=== PATIENT | female | born 1990 | race Caucasian/White ===

== ENCOUNTER 2023-01-18 16:28 | Inpatient (IN) | payer MEDICARE, MEDICAID, SELFPAY ==
--- NOTE | ~2023-01-18 | CT_ITS ---
CT ANGIOGRAM NECK WITH CONTRAST CT ANGIOGRAM BRAIN WITH CONTRAST CLINICAL INFORMATION: CVA. COMPARISON: Head and cervical spine CT 01/18/2023. TECHNIQUE: Test bolus sequences followed by intravenous administration 70 mL of Omnipaque 350. Helical imaging was performed in the axial plane from the thoracic inlet to the skull vertex. Delayed postcontrast imaging of the head was also performed. The data was processed at the ep technologist workstation for generation of MIP sequences. Angled MIPs and volume rendered reformatted images were also generated at an offline 3D workstation under concurrent supervision. Stenoses are assessed in accordance with NASCET criteria unless otherwise indicated. This CT examination was performed using dose optimization techniques as appropriate, variously including the following: *Automated exposure control *Adjustment of mA and/or kV according to patient size (this includes techniques or standardized protocols for targeted exams where dose is matched to indication/reason for exam; i.e. extremities or head) *Use of iterative reconstruction technique FINDINGS: BRAIN: Possible subtle sanchez to white matter differentiation loss within the right frontal operculum that can be more definitively assessed with MRI to exclude a small acute infarct. There is chronic encephalomalacia and gliosis within the right parasylvian frontotemporal lobe. There are multiple punctate calcifications within the right temporal lobe. [There is no intracranial hemorrhage, hydrocephalus, extra-axial surface collection, midline shift, or other herniation pattern. The basilar cisterns are preserved. No acute osseous abnormality. The paranasal sinuses and the mastoid air cells are well aerated.] Shrunken and partially calcified left globe again noted. CERVICAL SOFT TISSUES AND LUNG APICES: The imaged upper lungs are clear. There are no significant soft tissue findings within the neck. NECK CTA: [There is a classic 3 vessel configuration of the aortic arch. Proximal arch vessels are non-stenotic. The vertebral arteries are codominant. No significant ostial stenosis is visualized on either side. Both vertebral arteries are widely patent throughout their extracranial cervical course. Both common and internal carotid arteries are normal in course and caliber.] BRAIN CTA: [Attenuated caliber of multiple distal anterior right MCA sylvian branches without any definite discrete occlusion. No aneurysm. Timing of the contrast bolus allows assessment of the major dural venous sinuses, which all opacify normally] CT/CT angio head neck IMPRESSION: - Possible subtle sanchez to white matter differentiation loss within the right frontal operculum that can be more definitively assessed with MRI to exclude a small acute infarct. There is chronic encephalomalacia and gliosis within the right parasylvian frontotemporal lobe and there are multiple punctate calcifications within the right temporal lobe. Shrunken and partially calcified left globe again noted. - Attenuated caliber of multiple distal anterior right MCA sylvian branches without any definite discrete occlusion. - No acute arterial occlusions and no significant arterial stenoses within the head or neck.
--- NOTE | ~2023-01-18 | CT_ITS ---
EXAMINATION: CT cervical spine wo IV con, CT head/brain wo IV con INDICATION INFORMATION: Reason for Exam cervical radiculopathy?, neck pain COMPARISON: None TECHNIQUE: Separate noncontrast CT examinations of the head and cervical spine were performed. Coronal and sagittal images were created for each examination at the technologist workstation. This CT examination was performed using dose optimization techniques as appropriate, variously including the following: *Automated exposure control *Adjustment of mA and/or kV according to patient size (this includes techniques or standardized protocols for targeted exams where dose is matched to indication/reason for exam; i.e. extremities or head) *Use of iterative reconstruction technique DLP: 1404.06 mGy-cm FINDINGS: Head: No acute osseous or soft tissue abnormality. There are uveoscleral calcifications of the left globe which appears slightly shrunken. There is a left lens replacement. The mastoid air cells and visualized portions of the paranasal sinuses are well aerated. There is no evidence of acute intracranial hemorrhage or territorial infarction. No abnormal mass effect or midline shift is seen. [place] to white matter differentiation is well preserved. No extra-axial fluid collections are identified. Small hypodensity in the posterior left cerebellum which measures CSF density likely reflects a widened cerebellar folia, less likely a chronic lacunar infarct. There is a cluster of cortical and subcortical punctate calcifications in the posterior right temporal and right occipital lobe. There is ventriculomegaly for age, presumably on the basis of central volume loss, with slight disproportional enlargement of the right lateral ventricle which may reflect preferential right cerebral volume loss. Widening of the right sylvian fissure which may reflect some disproportionate right temporal lobe volume loss. 8 mm pineal cyst. Cervical spine: There is no evidence of acute cervical spine fracture. Vertebral bodies remain normal in height. Cervical straightening. Disc space heights are maintained. No significant osseous spinal canal or neural foraminal narrowing. No pre- or paravertebral soft tissue abnormality is identified. The visualized cervical soft tissues are unremarkable. CT/CT cervical spine wo IV con IMPRESSION: 1. No acute intracranial abnormality including hemorrhage, mass effect, hydrocephalus, or acute territorial edematous infarction. 2. No cervical spine fracture or traumatic malalignment. No significant osseous spinal canal or neural foraminal narrowing. 3. Cluster of cortical and subcortical calcifications in the posterior right temporal and right occipital lobe which are nonspecific but may reflect sequela of remote infection. Additionally, the left globe appears shrunken and partially calcified which also may reflect sequela of prior infection or trauma. Correlate with clinical history 4. Ventriculomegaly for age, presumably on the basis of central volume loss, with possible disproportionate involvement of the right cerebral hemisphere as evidenced by asymmetric enlargement of the right lateral ventricle and widening of the right sylvian fissure. All the above intracranial findings are presumably chronic in nature and could be further assessed with a nonemergent outpatient contrast-enhanced MRI of the brain if this has not been performed in the past.
--- NOTE | ~2023-01-18 | MR_ITS ---
MRI OF THE BRAIN WITHOUT IV CONTRAST INDICATION: CVA. COMPARISON: CTA head and neck and head 01/19/[address] 01/18/2023. TECHNIQUE: Multiplanar multisequence MR imaging of the brain was obtained without IV contrast. FINDINGS: Previous CT finding was artifactual. There is no acute infarct within the right frontal operculum. There is no hydrocephalus, extra-axial surface collection, or herniation. Chronic encephalomalacia and gliosis within the right parasylvian frontotemporal lobe. The major flow voids at the skull base are preserved. There is no acute infarct on diffusion-weighted imaging. There is no intracranial hemorrhage on the gradient recalled echo acquisition. The midline structures are normal. The cerebellar tonsils are normally positioned. The cerebellum and brainstem are normal. The craniocervical junction is normal. Osseous marrow signal intensity is homogenous. Left globe is again noted to be shrunken. MR/MR head/brain wo con IMPRESSION: - Previous CT finding was artifactual. There is no acute infarct within the right frontal operculum. There are no acute infarcts intracranially. - Chronic encephalomalacia and gliosis within the right parasylvian frontotemporal lobe.
[2023-01-18 17:25] VITALS: BP 131/78; PULSE 93; RESP 18; TEMP 36.2; O2SAT 98; BMI 23.9
--- NOTE | 2023-01-18 17:30 | ED.GENADULT ---
HPI - General Adult General Chief complaint: Neuro Symptoms/Deficit Stated complaint: R arm numbness Time Seen by Provider: 01/18/23 20:08 Source: patient Mode of arrival: ambulatory Limitations: no limitations History of Present Illness HPI narrative: 33-year-old female presents with right-sided weakness. Patient has a history of preeclampsia. She is currently not . She presents with intermittent right-sided numbness and tingling since Sunday. Today it has been persistent. She describes her symptoms as severe to the point she is unable to pressure daughter is here. There is no clear relieving or exacerbating features. It is associated with numbness and tingling to the right face and right upper extremity. She denies any pain, trauma or injury. She denies any significant headache or vision changes. Her mother did have a stroke at age 35 but that is reportedly due to eclampsia. She does have a history of stroke, heart disease, COPD in grandparents. Prior to Sunday, patient denies any previous significant neuro complaints. Related Data Previous Rx's Medication Instructions Recorded topiramate 25 mg tablet (Topamax) 25 mg PO DAILY #30 tabs 01/19/23 Allergies Allergy/AdvReac Type Severity Reaction Status Date / Time amoxicillin [AMOXICILLIN] Allergy Unknown UNKNOWN, Verified 01/18/23 17:25 hives vancomycin [VANCOMYCIN] Allergy Unknown REDNESS,ITCHINESS, Verified 01/18/23 17:25 rash Review of Systems Review of Systems: CONSTITUTIONAL: Denies weight loss, fever and chills. HEENT: Denies changes in vision and hearing. RESPIRATORY: Denies SOB and cough. CV: Denies palpitations no CP. GI: Denies abdominal pain, nausea, vomiting and diarrhea. : Denies dysuria and urinary frequency. MSK: Denies myalgia and joint pain. SKIN: Denies rash and pruritus. NEUROLOGICAL: Denies headache and syncope. PSYCHIATRIC: Denies recent changes in mood. Denies anxiety and depression. All other ROS are negative unless in HPI PMFSH Past Medical History Medical History Cataract, left History of pre-eclampsia Surgical History History of cataract surgery Social History Social History Household Members: Spouse and Children Housing: Apartment Do you presently have visiting nurse or other home services: No Alcohol intake: never Patient Tobacco Use Status: Never used Tobacco service: No Physical Exam ED Vital Signs: Vital Signs - 24 hr 01/18/23 17:25 01/18/23 19:53 Temperature 97.2 F 97.9 F Pulse Rate 93 83 Respiratory Rate 18 16 Blood Pressure 131/78 140/86 H Pulse Oximetry 98 100 Oxygen Delivery Method Room Air Room Air BMI result Body Mass Index 23.9 GEN: Well developed, no acute distress, alert, oriented HEENT: Normocephalic, atraumatic, normal external ears, nose appears normal, no oropharyngeal edema or exudates Eyes: Normal to appearance Neck: Supple, no lymphadenopathy Respiratory: Talks in complete sentences, no respiratory distress, clear to auscultation bilaterally Cardiovascular: Regular rate and rhythm, no murmurs rubs or gallops Abdomen: Soft, nontender, nondistended, no guarding, no rebound Back: No CVA tenderness Extremities: No clubbing cyanosis or edema Neurologic: No focal neurologic deficits, cranial nerves 2-12 intact, patient does have a right facial asymmetry that does not appear to be stroke-like, strength in the right upper extremity is a 3/5, left upper extremity 5/5, unable to assess right lower extremity due to prosthetic above the knee, decreased sensation over the right upper extremity and right face over the maxillary mandibular area. Skin: No rash Course Course Course Narrative: RME: 33 yold female presents to the ED For right arm weakness/nubmness since sunday. not able to use arm. NO neck or right arm pain. no recent trauma. Physical exam positve for right side pronator drift and significan weakness of right arm in comparison to left. patient out the window for TPA or EMBOli. Family hisotry of strokes. UNcle had stroke at 36 and mother stroke at 40. patient denies any pmh of HTN or drug use. Labs, EKG, and head Scan ordered. Charge NUrse Christen informed to bring patient as soon as possible even though patient is outside the window for TPA or carotid embolecomty if there is a stroke. patient having symptoms for the past 4 days Reevaluation(s) Reevaluation #1: Patient's workup is complete. She does have a CT that demonstrates some abnormalities including calcifications, ventriculomegaly is not clearly explain but is likely chronic in nature. There does not appear to be in acute stroke however, CT scan findings may lag MRI findings. This is certainly concerning given the persistency of her symptoms that were not previously present on Sunday. I contacted the hospitalist who agreed to admit the patient for further workup possible neurologic evaluation and MRI. Time: 20:32 Medications Administered Discontinued Medications Generic Name Dose Route Start Last Admin Trade Name Jodee PRN Reason Stop Dose Admin Aspirin 81 mg 01/19/23 09:00 01/19/23 09:27 Aspirin Enteric Coated 81 Mg Tablet. PO 81 mg DAILY TRACY Administration Atorvastatin Calcium 80 mg 01/19/23 09:00 01/19/23 09:27 Atorvastatin Calcium 80 Mg Tablet PO 80 mg DAILY TRACY Administration Enoxaparin Sodium 40 mg 01/19/23 06:30 01/19/23 06:32 Enoxaparin Sodium 40 Mg/0.4 Ml Syringe SUBCUT 40 mg Q24H TRACY Administration Iohexol 70 ml 01/19/23 08:48 01/19/23 08:49 Iohexol 350 Mg/Ml 75 Ml Infus..Btl IV 01/19/23 08:49 70 ml ONCE ONE Administration Medical Decision Making Medical Decision Making [facility] Narrative: Patient presents with new onset right upper extremity weakness and right upper extremity right facial numbness and tingling. Exam did identify decreased sensation in those affected areas. She does have demonstrable weakness of the right upper extremity. Differential diagnosis could include TIA, CVA, multiple sclerosis. CT scan has been ordered will be reviewed. Routine laboratory analysis is also been ordered. Will add on an EKG for further evaluation for cardiac dysrhythmia patient will likely warrant hospitalization. Differential Diagnosis Differential Diagnoses: The differential diagnosis associated with the presentation includes (See above) Admission/Observation Consideration of admission/observation: Escalation of care including admission/observation considered Consult Healthcare Provider Management of the patient was discussed with: Hospitalist Lab Data [facility] Lab Attestation statement: I reviewed the patient's lab results. 01/19/23 06:58 01/19/23 06:58 Labs: Lab Results 01/18/23 Range/Units 17:40 WBC 9.5 (4.8-10.8) X10*3/uL RBC 4.41 (4.20-5.50) X10*6/uL Hgb 13.4 (12.0-16.0) g/dl Hct 39.5 (37.0-47.0) % MCV 89.6 (80.0-98.0) fL MCH 30.4 (27.0-33.0) pg MCHC 33.9 (31.0-35.0) g/dl RDW 12.2 (11.0-16.0) % Plt Count 308 (160-400) X10*3/uL MPV 10.0 (9.4-12.3) fL Immature Gran % (Auto) 0.2 (0.0-0.4) % Neut % (Auto) 65.0 (45-73) % Lymph % (Auto) 25.5 (20-40) % [place] % (Auto) 7.8 (2-11) % Eos % (Auto) 1.1 (0-4) % Baso % (Auto) 0.4 (0-2) % Lymph # (Auto) 2.4 (1.2-4.9) X10*3/uL [place] # (Auto) 0.7 (0.1-1.2) X10*3/uL Eos # (Auto) 0.1 (0.0-0.4) X10*3/uL Baso # (Auto) 0.0 (0.0-0.2) X10*3/uL Abs Immat Gran (auto) 0.02 (0.00-0.03) X10*3/uL Absolute Neuts (auto) 6.2 (2.0-8.3) x10*3/uL Absolute Nucleated RBC 0.000 (0.0-0.012) X10*3/uL Nucleated RBC % (auto) 0.0 (0.0-0.2) /100WBC PT 10.8 L (11.1-13.3) SEC INR 0.9 (0.9-1.1) APTT 27.0 (26.0-36.4) SEC Sodium 137 (135-145) mmol/L Potassium 3.8 (3.3-5.1) mmol/L Chloride 105 (96-108) mmol/L Carbon Dioxide 22 (22-29) mmol/L Anion Gap 14 (12-20) BUN 16 (9-16) mg/dL Creatinine 0.63 (0.5-1.4) mg/dL Estim Creat Clear Calc 95.0 Estimated GFR > 60 Random Glucose 149 H (60-115) mg/dL Calcium 9.1 (8.4-10.2) mg/dL Total Bilirubin 0.4 (0.0-1.0) mg/dL AST 15 (5-31) U/L ALT 17 (0-31) U/L Alkaline Phosphatase 43 (39-117) U/L Troponin I High Sens < 2.7 (<3.5-17.0) ng/L Total Protein 5.9 L (6.5-8.0) g/dL Albumin 3.8 (3.5-5.0) g/dL Independent Interpretation I performed an independent interpretation of an: EKG (Normal sinus rhythm heart rate 79, no acute ST elevations depressions, normal intervals, essentially normal EKG.) and CT Scan (Head: Abnormalities noted on my review, no evidence of intracranial hemorrhage.) Radiology Impression Discussion of test interpretation with radiology: I have reviewed the radiologist's reading. Radiologist Impression: Impression CT scan head and cervical spine: 1. No acute intracranial abnormality including hemorrhage, mass effect, hydrocephalus or acute territorial edematous infarction. Two. No cervical spine fracture or traumatic malalignment. No significant osseous spinal canal or neuroforaminal narrowing. Three. Cluster of cortical and subcortical calcifications in the posterior right temporal and right occipital lobe which are nonspecific but may reflect sequelae of remote infection. Additionally, the left globe appears shrunken and partially calcified which also may reflect sequelae of prior infection or trauma. Correlate with clinical history. For. Ventriculomegaly for age, presumably on the basis of central volume loss with possible disproportionate involvement of the right cerebral hemisphere as evidence by asymmetric and enlargement of the right lateral ventricle and widening of the right sylvian fissure. All the above intracranial findings are presumably chronic in nature and could be further assessed with nonemergent outpatient contrast enhanced MRI of the brain if this has not been performed in the past. External Record Review Reviewed for old notes, no evidence of notes previously seen. Tests considered The following testing was considered but not selected: MRI, ultrasound Prescription Management I considered prescription management with: Other (Aspirin) Chronic Conditions Patient?s care impacted by: Other (Preeclampsia) Discharge Plan Discharge Clinical Impression: Neurological deficit present Patient Disposition: Admitted As Inpatient Interventions: Admission Worksheet (ED) Last Done: 01/19/23 00:22 Discharge Date/Time: 01/19/23 00:23
[2023-01-18 18:00] LABS: MANUAL DIFF FLAG NO
[2023-01-18 18:02] LABS: Basophils Percent Auto 0.4 % (0-2); Eosinophils Absolute Auto 0.1 X10*3/uL (0.0-0.4); Eosinophils Percent Auto 1.1 % (0-4); Hematocrit 39.5 % (37.0-47.0); Hemoglobin 13.4 g/dl (12.0-16.0); Imm Gran Abs Auto 0.02 X10*3/uL (0.00-0.03); Imm Gran Pct Auto 0.2 % (0.0-0.4); Lymphocytes Absolute Auto 2.4 X10*3/uL (1.2-4.9); Lymphocytes Percent Auto 25.5 % (20-40); Mean Corpuscular HGB Conc 33.9 g/dl (31.0-35.0); Mean Corpuscular Hemoglobin 30.4 pg (27.0-33.0); Mean Corpuscular Volume 89.6 fL (80.0-98.0); Monocytes Absolute Auto 0.7 X10*3/uL (0.1-1.2); Monocytes Percent Auto 7.8 % (2-11); Neutrophils Absolute Auto 6.2 x10*3/uL (2.0-8.3); Platelet Count 308 X10*3/uL (160-400); Red Blood Count 4.41 X10*6/uL (4.20-5.50); Red Cell Distribution Width 12.2 % (11.0-16.0); White Blood Count 9.5 X10*3/uL (4.8-10.8)
[2023-01-18 18:07] LABS: INTERNATIONAL NORM RATIO 0.9 (0.9-1.1); Prothrombin Time 10.8 SEC (11.1-13.3)
[2023-01-18 18:20] LABS: Alanine Aminotransferase 17 U/L (0-31); Albumin Level 3.8 g/dL (3.5-5.0); Alkaline Phosphatase 43 U/L (39-117); Anion Gap 14 (12-20); Aspartate Amino Transferase 15 U/L (5-31); Bilirubin Total 0.4 mg/dL (0.0-1.0); Blood Urea Nitrogen 16 mg/dL (9-16); Calcium 9.1 mg/dL (8.4-10.2); Carbon Dioxide 22 mmol/L (22-29); Chloride 105 mmol/L (96-108); Estimated Glomerular Filt Rate > 60; Glucose Random 149 mg/dL (60-115); Potassium 3.8 mmol/L (3.3-5.1); Sodium 137 mmol/L (135-145); Total Protein 5.9 g/dL (6.5-8.0)
[2023-01-18 18:32] LABS: Troponin-I High Sensitivity < 2.7 ng/L (<3.5-17.0)
[2023-01-18 19:53] VITALS: BP 140/86; PULSE 83; RESP 16; TEMP 36.6; O2SAT 100
--- NOTE | 2023-01-18 20:26 | ECG_ITS ---
Test Reason : focal weakness Blood Pressure : / mmHG Vent. Rate : 079 BPM Atrial Rate : 079 BPM P-R Int : 128 ms QRS Dur : 076 ms QT Int : 362 ms P-R-T Axes : 061 054 017 degrees QTc Int : 415 ms Normal sinus rhythm Normal ECG When compared with ECG of 24-JAN-2014 18:01, Heart rate has decreased Referred By: Jerzy Forde Electronically Signed By:ABRAM COLLAZO
[2023-01-18 21:40] VITALS: BP 118/79; PULSE 81; RESP 17; TEMP 36.9; O2SAT 98
--- NOTE | 2023-01-18 22:20 | P.HPHOSP_ITS ---
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 Comes into the hospital with complaints of right-sided weakness. She reports that it started on Sunday, occurring intermittently but today lasting longer therefore decided to come to the hospital. She otherwise denies any headache, no change in vision, no palpitations, no chest pain, shortness of breath, no abdominal pain nausea or vomiting, no diarrhea constipation, no urinary symptoms and no lower extremity edema On arrival to the ED patient hemodynamically stable Labs unremarkable Head CT with multiple abnormalities that includes cluster of cortical and subcortical calcification in the posterior right temporal and right occipital lobe which are nonspecific, ventriculomegaly for 8, presumably on the basis of central volume loss, possible disproportionate involvement of the right cerebral hemisphere as evidence vice asymmetric enlargement of the right lateral ventricle Patient admitted for further management Review of Systems 2 Review of Systems: Yes all other systems are reviewed and are negative [facility] Medical History Cataract, left History of pre-eclampsia Surgical History History of cataract surgery Social History Household Members: Spouse and Children Housing: Apartment Do you presently have visiting nurse or other home services: No Alcohol intake: never Patient Tobacco Use Status: Never used Tobacco Smoked in Last 30 Days: No Use of substances other than those prescribed or required for medical reasons: No Currently Displaying Signs/Symptoms of Drug Intoxication Withdrawal: No Have you been hit, kicked, punched, or otherwise hurt by someone within the past year? If so, by whom?: No Do you feel safe in your current relationship?: Yes Is there a partner from a previous relationship who is making you feel unsafe now?: Yes (not in current relationship.) Are you made to feel afraid or neglected: No Advance Directives: No Advance Directives Information Provided: No Do you have thoughts of harming others: None Do you have a plan to hurt others: No Plan Recently lost weight without trying: No Nutrition Risks: No Nutritional Risk Patient : No : No Poor oral hygiene: No Meds Allergies Allergy/AdvReac Type Severity Reaction Status Date / Time amoxicillin [AMOXICILLIN] Allergy Unknown UNKNOWN, Verified 01/18/23 17:25 hives vancomycin [VANCOMYCIN] Allergy Unknown REDNESS,ITCHINESS, Verified 01/18/23 17:25 rash Home Medications Medication Instructions Recorded Confirmed Last Taken Type No Known Home Meds 01/18/23 01/18/23 Unknown History Physical Exam 2 Vital Signs and Narrative: Vital Signs: Last Vital Signs Temp 98.5 F 01/18/23 21:40 Pulse 81 01/18/23 21:40 Resp 17 01/18/23 21:40 BP 118/79 01/18/23 21:40 Pulse Ox 98 01/18/23 21:40 O2 Del Method Room Air 01/18/23 21:40 BMI result Body Mass Index 23.9 Const: General: cooperative and no acute distress O rientation/consciousness: patient oriented x3 Eyes: General: appearance normal, both eyes and all related structures Resp: Effort & Inspection: normal respiratory effort Auscultation: clear to auscultation bilaterally Cardio: Rate: regular rate Rhythm: regular rhythm GI: Palpation (GI): Soft to palpation Auscultation: normal bowel sounds Skin: General skin exam: no rashes or lesions noted Neuro: Other: Has nystagmus which patient reports is chronic 3/5 strength in the right upper extremit y General: patient oriented x3 Cognition (Neuro): normal cognition Extrem: General: Yes normal to inspection and Yes no pedal edema Results Labs 01/18/23 17:40 01/18/23 17:40 Labs: Laboratory Results - last 24 hr 01/18/23 17:40 MCV 89.6 MCH 30.4 MCHC 33.9 RDW 12.2 Plt Count 308 MPV 10.0 Immature Gran % (Auto) 0.2 Neut % (Auto) 65.0 Lymph % (Auto) 25.5 [place] % (Auto) 7.8 Eos % (Auto) 1.1 Baso % (Auto) 0.4 Lymph # (Auto) 2.4 [place] # (Auto) 0.7 Eos # (Auto) 0.1 Baso # (Auto) 0.0 Abs Immat Gran (auto) 0.02 Absolute Neuts (auto) 6.2 Absolute Nucleated RBC 0.000 Nucleated RBC % (auto) 0.0 PT 10.8 L INR 0.9 APTT 27.0 Anion Gap 14 Estim Creat Clear Calc 95.0 Estimated GFR > 60 Random Glucose 149 H Calcium 9.1 Total Bilirubin 0.4 AST 15 ALT 17 Alkaline Phosphatase 43 Total Protein 5.9 L Albumin 3.8 Imaging Radiologist's Impressions: Impressions Cervical Spine CT 01/18/23 18:09 IMPRESSION: 1. No acute intracranial abnormality including hemorrhage, mass effect, hydrocephalus, or acute territorial edematous infarction. 2. No cervical spine fracture or traumatic malalignment. No significant osseous spinal canal or neural foraminal narrowing. 3. Cluster of cortical and subcortical calcifications in the posterior right temporal and right occipital lobe which are nonspecific but may reflect sequela of remote infection. Additionally, the left globe appears shrunken and partially calcified which also may reflect sequela of prior infection or trauma. Correlate with clinical history 4. Ventriculomegaly for age, presumably on the basis of central volume loss, with possible disproportionate involvement of the right cerebral hemisphere as evidenced by asymmetric enlargement of the right lateral ventricle and widening of the right sylvian fissure. All the above intracranial findings are presumably chronic in nature and could be further assessed with a nonemergent outpatient contrast-enhanced MRI of the brain if this has not been performed in the past. Head CT 01/18/23 18:09 IMPRESSION: 1. No acute intracranial abnormality including hemorrhage, mass effect, hydrocephalus, or acute territorial edematous infarction. 2. No cervical spine fracture or traumatic malalignment. No significant osseous spinal canal or neural foraminal narrowing. 3. Cluster of cortical and subcortical calcifications in the posterior right temporal and right occipital lobe which are nonspecific but may reflect sequela of remote infection. Additionally, the left globe appears shrunken and partially calcified which also may reflect sequela of prior infection or trauma. Correlate with clinical history 4. Ventriculomegaly for age, presumably on the basis of central volume loss, with possible disproportionate involvement of the right cerebral hemisphere as evidenced by asymmetric enlargement of the right lateral ventricle and widening of the right sylvian fissure. All the above intracranial findings are presumably chronic in nature and could be further assessed with a nonemergent outpatient contrast-enhanced MRI of the brain if this has not been performed in the past. Assessment and Plan (1) Neurological deficit present: Status: Acute (2) CVA (cerebral vascular accident): Qualifiers: CVA mechanism: unspecified Qualified Code(s): I63.9 - Cerebral infarction, unspecified Status: Acute (3) Abnormal head CT: Status: Acute Plan 33-year-old female past medical history of preeclampsia, drop foot status post amputation of the right leg comes into the hospital with complaints of right- sided weakness # CVA - right-sided upper extremity weakness, strength 3/5 - patient reports family history of stroke in mother in her 30s - head CT with multiple abnormalities but no acute infarct - will obtain CT angiogram and neck, brain MRI - neurology consulted - ASA and statin started # abnormal CT - patient denies history of congenital brain damage but head CT shows multiple abnormalities - will consult Neurology DVT prophylaxis: Lovenox Given patient's need further evaluation of CVA patient require minimum 2 nights inpatient hospital stay for further management and monitoring Time Spent With Patient Time: Total time managing care of this patient today ____ minutes. Quality Stroke Does the patient have a stroke diagnosis?: No VTE Prior VTE?: No VTE Risk Level:: Medical - moderate - high VTE Device Contraindication: Treatment Not Indicated VTE Drug Contraindication: N/A - Med Ordered
--- NOTE | 2023-01-18 22:38 | PHA.MEDREC ---
Pharmacy Consult ? Medication Reconciliation Pharmacy has completed the medication reconciliation.PT CONFIRMED SHE IS ON NO HOME MEDICATIONS PRESCRIPTION OR OTC.
[2023-01-18 23:56] VITALS: BP 108/70; PULSE 89; RESP 16; TEMP 36.7; O2SAT 99
[2023-01-19 00:36] VITALS: BMI 24.2
[2023-01-19 01:16] VITALS: BP 116/61; PULSE 83; RESP 18; TEMP 37; O2SAT 97
--- NOTE | 2023-01-19 03:44 | PC.NURSE ---
Patient arrived to 461 from ED via wheelchair. Able to ambulate to bed with stand by assist. A&Ox4, denies pain. RUE weakness noted. Patient c/o numbness and tingles to the right side of her face and RUE. Denies further numbness to rest of body. Right leg prosthetic in place, ambulating to bathroom without difficulty. Noted limp with walk which is normal for patient due to prosthetic. Placed on high fall risk as patient noted to have fall within the last 6 months. Neuro checks as ordered Q4. Pending MRI. line servicer in place, NSR. Call marrero within reach. Bed in lowest locked position.
[2023-01-19 03:46] VITALS: BP 106/56; PULSE 74; RESP 18; TEMP 36.6; O2SAT 98
[2023-01-19] MEDS: Enoxaparin Sodium 40 MG/0.4 ML SYRINGE SUBCUT (06:32)
[2023-01-19 07:18] LABS: MANUAL DIFF FLAG NO
[2023-01-19 07:22] LABS: Basophils Percent Auto 0.3 % (0-2); Eosinophils Absolute Auto 0.1 X10*3/uL (0.0-0.4); Eosinophils Percent Auto 1.9 % (0-4); Hematocrit 37.9 % (37.0-47.0); Hemoglobin 13.1 g/dl (12.0-16.0); Imm Gran Abs Auto 0.02 X10*3/uL (0.00-0.03); Imm Gran Pct Auto 0.3 % (0.0-0.4); Mean Corpuscular HGB Conc 34.6 g/dl (31.0-35.0); Mean Corpuscular Hemoglobin 30.8 pg (27.0-33.0); Mean Platelet Volume 10.1 fL (9.4-12.3); Monocytes Absolute Auto 0.7 X10*3/uL (0.1-1.2); Monocytes Percent Auto 8.8 % (2-11); Neutrophils Absolute Auto 4.6 x10*3/uL (2.0-8.3); Neutrophils Percent Auto 61.7 % (45-73); Platelet Count 282 X10*3/uL (160-400); Red Blood Count 4.26 X10*6/uL (4.20-5.50); Red Cell Distribution Width 12.3 % (11.0-16.0); White Blood Count 7.4 X10*3/uL (4.8-10.8)
[2023-01-19 07:25] VITALS: BP 111/70; PULSE 73; RESP 20; TEMP 36.4; O2SAT 97
[2023-01-19 07:40] LABS: Anion Gap 14 (12-20); Blood Urea Nitrogen 14 mg/dL (9-16); Calcium 8.6 mg/dL (8.4-10.2); Carbon Dioxide 20 mmol/L (22-29); Chloride 107 mmol/L (96-108); Cholesterol 169 mg/dL (<200); Estimated Glomerular Filt Rate > 60; Glucose Random 185 mg/dL (60-115); HDL Cholesterol 37 mg/dL (>40); LDL Cholesterol Calculated 93 mg/dL (<100); Potassium 3.9 mmol/L (3.3-5.1); Sodium 137 mmol/L (135-145); Triglycerides 197 mg/dL (<150)
[2023-01-19] MEDS: iohexoL 350 MG/ML 75 ML INFUS..BTL 70 ML IV (08:49)
[2023-01-19] MEDS: Atorvastatin Calcium 80 MG TABLET PO (09:27)
[2023-01-19] MEDS: Aspirin Enteric Coated 81 MG TABLET.DR PO (09:27)
[2023-01-19 09:30] VITALS: BP 111/70; PULSE 73; O2SAT 97
--- NOTE | 2023-01-19 10:17 | P.PNIM_ITS ---
Subjective Subjective Date of Service: 01/19/23 Interval History: right sided wekaness Physical Exam 2 Vital Signs: Vital Signs: Last Vital Signs Temp 97.5 F 01/19/23 07:25 Pulse 73 01/19/23 09:30 Resp 20 01/19/23 07:25 BP 111/70 01/19/23 09:30 Pulse Ox 97 01/19/23 09:30 O2 Del Method Room Air 01/19/23 07:25 BMI result Body Mass Index 24.2 General: AO X 3, no acute distress Resp: CTA bilateral, no accessory muscles used CVS: S1,S2,RRR GI: soft, non tender, non distended Neuro: Has nystagmus which patient reports is chronic 3/5 strength in the right upper extremit y Psych: appropriate affect, appropriate insight Objective Data Active Medications Acetaminophen (Acetaminophen 325 Mg Tablet) 650 mg PO Q6H PRN PRN Reason: Pain, Mild (Pain Scale 1-3) Aspirin (Aspirin Enteric Coated 81 Mg Tablet.) 81 mg PO DAILY [facility] Last Admin: 01/19/23 09:27 Dose: 81 mg Documented By: BERNARDA Atorvastatin Calcium (Atorvastatin Calcium 80 Mg Tablet) 80 mg PO DAILY [facility] Last Admin: 01/19/23 09:27 Dose: 80 mg Documented By: BERNARDA Docusate Sodium (Docusate Sodium 100 Mg Capsule) 100 mg PO DAILY PRN PRN Reason: Constipation Enoxaparin Sodium (Enoxaparin Sodium 40 Mg/0.4 Ml Syringe) 40 mg SUBCUT Q24H [facility] Last Admin: 01/19/23 06:32 Dose: 40 mg Documented By: STEFANIE Ondansetron HCl (Ondansetron Hcl 4 Mg/2 Ml Vial) 4 mg IVPUSH Q8H PRN PRN Reason: Nausea and Vomiting Labs 01/19/23 06:58 01/19/23 06:58 Labs: Laboratory Results - last 24 hr 01/18/23 01/19/23 17:40 06:58 MCV 89.6 89.0 MCH 30.4 30.8 MCHC 33.9 34.6 RDW 12.2 12.3 Plt Count 308 282 MPV 10.0 10.1 Immature Gran % (Auto) 0.2 0.3 Neut % (Auto) 65.0 61.7 Lymph % (Auto) 25.5 27.0 [place] % (Auto) 7.8 8.8 Eos % (Auto) 1.1 1.9 Baso % (Auto) 0.4 0.3 Lymph # (Auto) 2.4 2.0 [place] # (Auto) 0.7 0.7 Eos # (Auto) 0.1 0.1 Baso # (Auto) 0.0 0.0 Abs Immat Gran (auto) 0.02 0.02 Absolute Neuts (auto) 6.2 4.6 Absolute Nucleated RBC 0.000 0.000 Nucleated RBC % (auto) 0.0 0.0 PT 10.8 L INR 0.9 APTT 27.0 Anion Gap 14 14 Estim Creat Clear Calc 95.0 102.0 Estimated GFR > 60 > 60 Random Glucose 149 H 185 H Calcium 9.1 8.6 Total Bilirubin 0.4 AST 15 ALT 17 Alkaline Phosphatase 43 Total Protein 5.9 L Albumin 3.8 Triglycerides 197 H Cholesterol 169 LDL Cholesterol, Calc 93 HDL Cholesterol 37 L Assessment and Plan (1) Abnormal head CT: Status: Acute Plan 33-year-old female past medical history of preeclampsia, 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 Quality Stroke Does the patient have a stroke diagnosis?: No VTE Prior VTE?: No VTE Risk Level:: Medical - moderate - high VTE Device Contraindication: Treatment Not Indicated VTE Drug Contraindication: N/A - Med Ordered
--- NOTE | 2023-01-19 11:18 | PM.NEUROCN ---
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 She was having 5-6 headache some month some of them quite severe involving nausea and vomiting and lasting for a day or 2. She came to hospital with symptom of numbness that would start in right shoulder area and slowly spread to involve her right arm and hand in matter of a minute or to or few minutes and lasted about 15 minutes at a time. She had multiple episodes of the same. There was no associated confusion. Brain imaging was performed revealing findings and this consultation was requested. Review of Systems Review of Systems: No recent cold or flu-like illness trauma or seizure-like episode PMFSH Past Medical History Medical History Cataract, left History of pre-eclampsia Surgical History Surgical History History of cataract surgery Social History Social History Household Members: Spouse and Children Housing: Apartment Do you presently have visiting nurse or other home services: No Alcohol intake: never Patient Tobacco Use Status: Never used Tobacco Smoked in Last 30 Days: No Use of substances other than those prescribed or required for medical reasons: No Currently Displaying Signs/Symptoms of Drug Intoxication Withdrawal: No Have you been hit, kicked, punched, or otherwise hurt by someone within the past year? If so, by whom?: No Do you feel safe in your current relationship?: Yes Is there a partner from a previous relationship who is making you feel unsafe now?: Yes (not in current relationship.) Are you made to feel afraid or neglected: No Advance Directives: No Advance Directives Information Provided: No Do you have thoughts of harming others: None Do you have a plan to hurt others: No Plan Recently lost weight without trying: No Nutrition Risks: No Nutritional Risk Patient : No : No Poor oral hygiene: No Meds Allergies Allergy/AdvReac Type Severity Reaction Status Date / Time amoxicillin [AMOXICILLIN] Allergy Unknown UNKNOWN, Verified 01/18/23 17:25 hives vancomycin [VANCOMYCIN] Allergy Unknown REDNESS,ITCHINESS, Verified 01/18/23 17:25 rash Active Medications: Current Medications Acetaminophen (Acetaminophen 325 Mg Tablet) 650 mg PO Q6H PRN PRN Reason: Pain, Mild (Pain Scale 1-3) Aspirin (Aspirin Enteric Coated 81 Mg Tablet.) 81 mg PO DAILY [facility] Last Admin: 01/19/23 09:27 Dose: 81 mg Atorvastatin Calcium (Atorvastatin Calcium 80 Mg Tablet) 80 mg PO DAILY [facility] Last Admin: 01/19/23 09:27 Dose: 80 mg Docusate Sodium (Docusate Sodium 100 Mg Capsule) 100 mg PO DAILY PRN PRN Reason: Constipation Enoxaparin Sodium (Enoxaparin Sodium 40 Mg/0.4 Ml Syringe) 40 mg SUBCUT Q24H [facility] Last Admin: 01/19/23 06:32 Dose: 40 mg Ondansetron HCl (Ondansetron Hcl 4 Mg/2 Ml Vial) 4 mg IVPUSH Q8H PRN PRN Reason: Nausea and Vomiting Home Medications Medication Instructions Recorded Confirmed Last Taken Type No Known Home Meds 01/18/23 01/18/23 Unknown History Physical Exam Vital Signs: Vital Signs: Last Vital Signs Temp 97.5 F 01/19/23 07:25 Pulse 73 01/19/23 09:30 Resp 20 01/19/23 07:25 BP 111/70 01/19/23 09:30 Pulse Ox 97 01/19/23 09:30 O2 Del Method Room Air 01/19/23 07:25 BMI result Body Mass Index 24.2 Neuro: Other: She is alert and awake with normal spontaneity of speech fluency comprehension and affect. Face is symmetrical. Visual mcknight are normal. Right leg is prostatic. Left foot and leg has normal exam. There is no obvious neglect. Results Labs 01/19/23 06:58 01/19/23 06:58 Labs: Short CBC 01/18/23 01/19/23 Range/Units 17:40 06:58 WBC 9.5 7.4 (4.8-10.8) X10*3/uL Hgb 13.4 13.1 (12.0-16.0) g/dl Hct 39.5 37.9 (37.0-47.0) % Plt Count 308 282 (160-400) X10*3/uL BMP 01/18/23 01/19/23 17:40 06:58 Sodium 137 137 Potassium 3.8 3.9 Chloride 105 107 Carbon Dioxide 22 20 L BUN 16 14 Creatinine 0.63 0.59 Calcium 9.1 8.6 Liver Function 01/18/23 Range/Units 17:40 Total Bilirubin 0.4 (0.0-1.0) mg/dL AST 15 (5-31) U/L ALT 17 (0-31) U/L Alkaline Phosphatase 43 (39-117) U/L Albumin 3.8 (3.5-5.0) g/dL CT of brain, CTA of brain and neck, an MRI of brain were reviewed. There were few tiny calcifications parts on head CT in brain parenchyma and mildly enlarged ventricle for her age. MRI was limited as only limited sequence was done including DWI sequence, which did not reveal any definitive abnormality. This seems to be couple of punctate hyper intensity in her right frontal area but corresponding imaging was absent to confirm that finding. 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 I recommend starting her on topiramate 25 mg at night for headache control. (2) Chronic static encephalopathy: Status: Acute This is probably related to either or childhood etiology. There many viruses that could impact brain in this manner. In any case, no intervention for brain calcification is needed at this time. (3) Brain parenchymal calcification: Status: Acute Time Spent With Patient Time: Total time managing care of this patient today ____ minutes. Procedures Date of Service Date of Service: 01/19/23
[2023-01-19 11:33] VITALS: BP 116/76; PULSE 84; RESP 20; TEMP 36.2; O2SAT 98
--- NOTE | 2023-01-19 12:03 | PM.DS ---
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 Comes into the hospital with complaints of right-sided weakness. She reports that it started on Sunday, occurring intermittently but today lasting longer therefore decided to come to the hospital. She otherwise denies any headache, no change in vision, no palpitations, no chest pain, shortness of breath, no abdominal pain nausea or vomiting, no diarrhea constipation, no urinary symptoms and no lower extremity edema On arrival to the ED patient hemodynamically stable Labs unremarkable Head CT with multiple abnormalities that includes cluster of cortical and subcortical calcification in the posterior right temporal and right occipital lobe which are nonspecific, ventriculomegaly for 8, presumably on the basis of central volume loss, possible disproportionate involvement of the right cerebral hemisphere as evidence vice asymmetric enlargement of the right lateral ventricle Patient admitted for further management hospital course: Patient was admitted for right hemiparesis concern for acute CVA. 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 Recommendations were for Topamax 25 mg daily. Time Spent with Patient Time attestation: Total time managing care of this patient today ____ minutes. Discharge coordination time: Greater than 30 minutes Quality: Safe Use of Opioids Does Pt have an Active Cancer Diagnosis on the Problem List?: No Quality: Stroke Does the patient have a stroke diagnosis?: No Physical Exam Vital Signs: Vital Signs: Last Vital Signs Temp 97.1 F 01/19/23 11:33 Pulse 84 01/19/23 11:33 Resp 20 01/19/23 11:33 BP 116/76 01/19/23 11:33 Pulse Ox 98 01/19/23 11:33 O2 Del Method Room Air 01/19/23 11:33 BMI result Body Mass Index 24.2 Neuro: Other: She is alert and awake with normal spontaneity of speech fluency comprehension and affect. Face is symmetrical. Visual mcknight are normal. Right leg is prostatic. Left foot and leg has normal exam. There is no obvious neglect. DS: Data Data Completed and Pending Labs on day of discharge: Laboratory Results - last 24 hr 01/18/23 01/19/23 17:40 06:58 WBC 9.5 7.4 RBC 4.41 4.26 Hgb 13.4 13.1 Hct 39.5 37.9 MCV 89.6 89.0 MCH 30.4 30.8 MCHC 33.9 34.6 RDW 12.2 12.3 Plt Count 308 282 MPV 10.0 10.1 Immature Gran % (Auto) 0.2 0.3 Neut % (Auto) 65.0 61.7 Lymph % (Auto) 25.5 27.0 [place] % (Auto) 7.8 8.8 Eos % (Auto) 1.1 1.9 Baso % (Auto) 0.4 0.3 Lymph # (Auto) 2.4 2.0 [place] # (Auto) 0.7 0.7 Eos # (Auto) 0.1 0.1 Baso # (Auto) 0.0 0.0 Abs Immat Gran (auto) 0.02 0.02 Absolute Neuts (auto) 6.2 4.6 Absolute Nucleated RBC 0.000 0.000 Nucleated RBC % (auto) 0.0 0.0 PT 10.8 L INR 0.9 APTT 27.0 Sodium 137 137 Potassium 3.8 3.9 Chloride 105 107 Carbon Dioxide 22 20 L Anion Gap 14 14 BUN 16 14 Creatinine 0.63 0.59 Estim Creat Clear Calc 95.0 102.0 Estimated GFR > 60 > 60 Random Glucose 149 H 185 H Calcium 9.1 8.6 Total Bilirubin 0.4 AST 15 ALT 17 Alkaline Phosphatase 43 Troponin I High Sens < 2.7 Total Protein 5.9 L Albumin 3.8 Triglycerides 197 H Cholesterol 169 LDL Cholesterol, Calc 93 HDL Cholesterol 37 L Discharge Plan Discharge Anticipated Discharge Date/Time: 01/19/23 12:01 Patient Disposition: Home, Self-Care Discharge Diagnosis: complex migraine Referrals: Physician,Unknown J [Primary Care Provider] - 1 Week Discharge Medications: New topiramate [Topamax] 25 mg tablet 25 mg PO DAILY Qty: 30 0RF Discharge Orders: Discharge Order (Routine); Ordered 01/19/23 Ordered By: Dell Lucia Diet: Advance to usual diet Activity on Discharge: As tolerated Stand Alone Forms: Patient Portal Discharge page Care Plan Goals: recovery Health Concerns: migraines Plan of Treatment: topomax Assessment: see above
--- NOTE | 2023-01-19 12:50 | MHC.CM.PN ---
IMM 01/19/23 Pt lives with spouse, has home health care at home, has been medically cleared for d/c, Pt returning home, family to transport, home with prior services.
== END 2023-01-19 14:15 | disposition home or self-care (01) | DRG 103 ==
LOC: HO.ED 20:37 → HO.EDOVER 22:29 → HO.IMC 22:41
PROVIDERS: Physician Assistant; Admitting Provider Internal Medicine; Emergency Provider Emergency Medicine; Visit Provider Internal Medicine
DX: G43.109 Migraine with aura, not intractable, without status migrainosus (principal); G93.49 Other encephalopathy; G81.91 Hemiplegia, unspecified affecting right dominant side; G93.89 Other specified disorders of brain; Z89.611 Acquired absence of right leg above knee
CPT/HCPCS: 36415; 70450; 70496; 70498; 70551; 72125; 80048; 80053; 80061; 84484; 85025; 85610; 85730; 93005; 97162; 97166; 99222; 99285; J1650; Q9967

== ENCOUNTER → 2023-01-18 22:17 | Outpatient (BNV) | payer MEDICARE, MEDICAID, SELFPAY | PROVIDERS: Admitting Provider Internal Medicine; Emergency Provider Emergency Medicine; Visit Provider Internal Medicine | DX: G43.109 Migraine with aura, not intractable, without status migrainosus (principal); G93.49 Other encephalopathy; G93.89 Other specified disorders of brain; R29.818 Other symptoms and signs involving the nervous system; I63.9 Cerebral infarction, unspecified; R93.0 Abnormal findings on diagnostic imaging of skull and head, not elsewhere classified | CPT/HCPCS: 99223; 99239 ==

== ENCOUNTER 2025-01-07 22:32 | Emergency (ER) | payer MEDICARE, SELFPAY ==
--- NOTE | ~2025-01-07 | US_ITS ---
CLINICAL HISTORY: pain Venous duplex ultrasound left lower extremity Comparison: None provided Findings: The visualized deep veins are fully compressible with normal Doppler color flow and spectral tracings. Small superficial vein measures 2 mm diameter and nonspecific by ultrasound of the may represent portion of the varicose vein (01/10/2029). IMPRESSION: 1. Negative for left lower extremity deep vein thrombosis. This document has been electronically signed by: Brennan Rothman MD on 01/07/2025 23:49:56
[2025-01-07 22:42] VITALS: BP 148/72; PULSE 89; RESP 16; TEMP 36.4; O2SAT 98; BMI 21.6
[2025-01-07 23:04] LABS: Hematocrit 35.0 % (37.0-47.0); Hemoglobin 12.7 g/dl (12.0-16.0); Imm Gran Abs Auto 0.02 X10*3/uL (0.00-0.03); Imm Gran Pct Auto 0.3 % (0.0-0.4); Lymphocytes Absolute Auto 2.3 X10*3/uL (1.2-4.9); MANUAL DIFF FLAG NO; Mean Corpuscular HGB Conc 36.3 g/dl (31.0-35.0); Mean Corpuscular Hemoglobin 31.4 pg (27.0-33.0); Mean Corpuscular Volume 86.6 fL (80.0-98.0); NRBC Abs Auto 0.000 X10*3/uL (0.0-0.012); NRBC Pct Auto 0.0 /100WBC (0.0-0.2); Platelet Count 264 X10*3/uL (160-400); Red Blood Count 4.04 X10*6/uL (4.20-5.50); White Blood Count 6.4 X10*3/uL (4.8-10.8)
[2025-01-07 23:09] LABS: INTERNATIONAL NORM RATIO 0.9 (0.9-1.1); Prothrombin Time 10.6 SEC (10.9-12.4)
[2025-01-07 23:18] LABS: Alanine Aminotransferase 15 U/L (0-31); Albumin Level 4.1 g/dL (3.5-5.0); Alkaline Phosphatase 56 U/L (39-117); Anion Gap 12 (12-20); Aspartate Amino Transferase 15 U/L (5-31); Blood Urea Nitrogen 14 mg/dL (9-16); Calcium 8.6 mg/dL (8.4-10.2); Carbon Dioxide 23 mmol/L (22-29); Chloride 108 mmol/L (96-108); Creatinine Clr Calc Pharmacy 76.5; Estimated Glomerular Filt Rate > 60; Potassium 3.7 mmol/L (3.3-5.1); Sodium 139 mmol/L (135-145); Total Protein 6.3 g/dL (6.5-8.0)
--- NOTE | 2025-01-07 23:45 | ED_ITS ---
HPI - General Adult General Chief complaint: Extremity Problem Stated complaint: left leg pain and swelling Time Seen by Provider: 01/07/25 23:24 Source: patient, RN notes reviewed and old records reviewed Mode of arrival: ambulatory Limitations: no limitations History of Present Illness ED Provider: Ty PENN narrative: 35-year-old female with a past medical history significant for diabetes presents for evaluation of left leg pain. 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 She would not have any trauma or injury to the area. She states that she now has some numbness in her foot. Denies any fevers, chills pain She is not on any medications except for insulin for her diabetes No history of DVT or PE pain Denies any chest pain, shortness of breath No other complaints or concerns at this time Related Data Previous Rx's ?Medication ?Instructions ?Recorded topiramate 25 mg tablet (Topamax) 25 mg PO DAILY #30 t abs 01/19/23 Allergies Allergy/AdvReac Type Severity Reaction Status Date / Time amoxicillin (AMOXICILLIN) Allergy Unknown UNKNOWN, Verified 01/07/25 22:43 hives vancomycin (VANCOMYCIN) Allergy Unknown REDNESS,ITCHINESS, Verified 01/07/25 22:43 rash Review of Systems 2 Constitutional: Constitutional: Denies anorexia, Denies body ache(s), Denies chills and Denies fatigue Eyes: Eyes: Denies blurry vision ENT: Denies vertigo and Denies dizziness Cardiovascular: Cardiovascular: Denies chest pain and Denies dyspnea on exertion Respiratory: Respiratory: Denies cough and Denies dyspnea on exertion Gastrointestinal: Gastrointestinal: Denies abdominal pain Musculoskeletal: Comments: Left leg pain Integumentary/Breasts: Skin/Breast: Reports unusual bruising Neurologic: Denies vertigo and Denies dizziness Endocrine: Endocrine: Denies fatigue [facility] Past Medical History Medical History Cataract, left History of pre-eclampsia Surgical History History of cataract surgery Social History Social History Household Members: Spouse and Children Housing: Apartment Do you presently have visiting nurse or other home services: No Alcohol intake: never Patient Tobacco Use Status: Never used Tobacco Smoked in Last 30 Days: No Use of substances other than those prescribed or required for medical reasons: Yes Substance Use Type: Marijuana Advance Directives: No Advance Directives Information Provided: Yes service: No Physical Exam ED Vital Signs: Vital Signs - 24 hr 01/07/25 22:42 Temperature 97.5 F Pulse Rate 89 Respiratory Rate 16 Blood Pressure 148/72 H Pulse Oximetry 98 Oxygen Delivery Method Room Air BMI result Body Mass Index 21.6 Const General: healthy appearing, comfortable, no acute distress, alert and awake Nutritional Appearance: well nourished Orientation/consciousness: patient oriented x3 HENMT Head: Yes normocephalic and Yes atraumatic Eyes Eyelids: Yes eyelids normal Conjunctivae: conjunctivae normal Sclerae: sclerae normal Corneas: corneas normal Pupils: Equal, round and reactive pupils present EOM: EOMs intact bilaterally Neck Neck: Yes full ROM Resp Effort & Inspection: normal respiratory effort, able to speak in complete sentences and not labored GI Inspection: No distended Palpation (GI): Soft to palpation, not firm, nontender, no guarding and not rigid Skin General skin exam: elasticity normal Neuro General: patient oriented x3 Cranial nerves: Yes Equal, round and reactive pupils present and Yes Bilaterally intact EOM present Cognition (Neuro): normal cognition Extrem Other: The skin about 3 cm nummular area of ecchymosis in the area of the collection of varicose vein to the left mid calf. This area is tender to palpation. No surrounding erythema, no open wounds. No lower extremity edema. Medical Decision Making Medical Decision Making [facility] Narrative: 35-year-old female with a past medical history as above presents for evaluation of left leg pain. This was atraumatic, she is able to flex and extend the left foot and ankle. I have a low suspicion for calf tear or Achilles tendon rupture. There was no evidence of infectious process. An ultrasound was ordered to rule out DVT. Clinically this looks like a ruptured varicose vein and hematoma underneath the skin. Differential Diagnosis Differential Diagnoses: The differential diagnosis associated with the presentation includes Left leg pain Hematoma Varicose vein DVT Thrombophlebitis Cellulitis less likely Lab Data [facility] Lab Attestation statement: I reviewed the patient's lab results. No leukocytosis or significant anemia. Normal platelet count. No electrolyte abnormalities warranting dimension. The patient has a known diabetic, she has a random glucose of 242 but no evidence of DKA. 01/07/25 22:59 01/07/25 22:59 Labs: Lab Results 01/07/25 Range/Units 22:59 WBC 6.4 (4.8-10.8) X10*3/uL RBC 4.04 L (4.20-5.50) X10*6/uL Hgb 12.7 (12.0-16.0) g/dl Hct 35.0 L (37.0-47.0) % MCV 86.6 (80.0-98.0) fL MCH 31.4 (27.0-33.0) pg MCHC 36.3 H (31.0-35.0) g/dl RDW 11.6 (11.0-16.0) % Plt Count 264 (160-400) X10*3/uL MPV 10.1 (9.4-12.3) fL Immature Gran % (Auto) 0.3 (0.0-0.4) % Neut % (Auto) 53.3 (45-73) % Lymph % (Auto) 35.8 (20-40) % [place]ding % (Auto) 8.1 (2-11) % Eos % (Auto) 1.9 (0-4) % Baso % (Auto) 0.6 (0-2) % Lymph # (Auto) 2.3 (1.2-4.9) X10*3/uL [place] # (Auto) 0.5 (0.1-1.2) X10*3/uL Eos # (Auto) 0.1 (0.0-0.4) X10*3/uL Baso # (Auto) 0.0 (0.0-0.2) X10*3/uL Abs Immat Gran (auto) 0.02 (0.00-0.03) X10*3/uL Absolute Neuts (auto) 3.4 (2.0-8.3) x10*3/uL Absolute Nucleated RBC 0.000 (0.0-0.012) X10*3/uL Nucleated RBC % (auto) 0.0 (0.0-0.2) /100WBC PT 10.6 L (10.9-12.4) SEC INR 0.9 (0.9-1.1) Sodium 139 (135-145) mmol/L Potassium 3.7 (3.3-5.1) mmol/L Chloride 108 (96-108) mmol/L Carbon Dioxide 23 (22-29) mmol/L Anion Gap 12 (12-20) BUN 14 (9-16) mg/dL Creatinine 0.70 (0.5-1.4) mg/dL Estim Creat Clear Calc 76.5 Estimated GFR > 60 Random Glucose 242 H (60-115) mg/dL Calcium 8.6 (8.4-10.2) mg/dL Total Bilirubin 0.2 (0.0-1.0) mg/dL AST 15 (5-31) U/L ALT 15 (0-31) U/L Alkaline Phosphatase 56 (39-117) U/L Total Protein 6.3 L (6.5-8.0) g/dL Albumin 4.1 (3.5-5.0) g/dL Radiology Impression Discussion of test interpretation with radiology: I have reviewed the radiologist's reading. Radiologist Impression: Findings: The visualized deep veins are fully compressible with normal Doppler color flow and spectral tracings. Small superficial vein measures 2 mm diameter and nonspecific by ultrasound of the may represent portion of the varicose vein (01/10/2029). IMPRESSION: 1. Negative for left lower extremity deep vein thrombosis. This document has been electronically signed by: Brennan Rothman MD on 01/07/2025 23:49:56 Discharge Plan Discharge Clinical Impression: Left leg pain Patient Disposition: Home, Self-Care Instructions: Leg Pain (ED) Additional Instructions: Your blood work today was reassuring. Your ultrasound did not show any evidence of DVT but did show varicose veins in the area of your pain. It appears as though you had a small hematoma in the area of varicose vein. Use ibuprofen/Tylenol for pain. Apply ice to the swollen area every 4 hours for 10-15 minutes Elevate the leg above your heart Prescriptions: No Action topiramate [Topamax] 25 mg tablet 25 mg PO DAILY Qty: 30 0RF Stand Alone Forms: Work/School Release Print Language: Kyrgyz
--- OUTSIDE RECORDS SUMMARY | 2025-01-07 23:52 | XMS_ITS | Clinical Summary ---
Author Organization [facility] Address [address] [place] [phone] Phone Care Team Providers Care Telephone Claims Representative Name Role Phone Pcp, Unknown Primary Care Provider Unavailabl e Allergies Active Allergy Reactions Criticality Noted Date Comments Amoxicillin 11/21/2022 Vancomycin 11/21/2022 Medications acetaminophen (TYLENOL) 325 mg tablet Take 650 mg by mouth as needed. Active Social History Tobacco Use Types Packs/Day Years Used Date Smoking Tobacco: Never Assessed Education Answer Date Recorded Are you interested in more education? Not on sergey e 11/09/2022 Are you concerned about learning? Not on file 11/09/2022 No 11/09/2022 No 11/09/2022 Digital Access Answer Date Recorded No 11/09/2022 No 11/09/2022 Reliable internet access at home? Not on file 11/09/2022 Device with a working camera? Not on file Comments Unknown Sex and Gender Information Value Date Recorded Sex Assigned at Female 11/09/2022 9:30 AM EDT Legal Sex Female 9:23 AM EDT Gender Identity Female 11/09/2022 9:30 AM EDT Sexual Orientation Lesbian or Jones 11/09/2022 9: 31 AM EDT Last Filed Vital Signs Vital Sign Reading Time Taken Comments Blood Pressure - - Pulse - - Temperature - - Respiratory Rate - - Oxygen Saturation - - Inhaled Oxygen Concentration - - Weight 52.1 kg (114 lb 14.4 oz) 023 11:23 AM EDT Height 151.1 cm (4' 11.5 ) 11/21/2022 1 1:23 AM EDT Body Mass Index 22.82 11/21/2022 11:23 AM EDT Plan of Treatment Health Maintenance Due Date Last Done Comments DEPRESSION SCREENING 2002 SMOKING Hx and SMOKELESS TOBACCO SCREENING 2003 HEPATITIS C SCREENING 01/05/2008 HIV ONE-TIME SCREENING (18-6 5 YEARS) 01/05/2008 PAP SMEAR 2011 Adult Td,Tdap Booster 02/25/2024 02/24/2014 INFLUENZA VACCINE (#1) 2024 COVID-19 VACCINE ( - 2023-2 5 season) 2024 HIB VACCINES Completed 04/21/1991, 1990 HEPATITIS A VACCINES Aged Out No long er eligible based on patient's age to complete this topic MENINGOCOCCAL VACCINES (ACWY) Aged Out No longer eligible based on patient's age to complete this topic MENINGOCOCCAL VACCINES (B) Aged Out N o longer eligible based on patient's age to complete this topic PNEUMOCOCCAL VACCINES (0-49 years) Aged Out No longer eligible b ased on patient's age to complete this topic Medical Devices Not on file Insurance MEDICARE REPLACEMENT [facility] MEDICARE REPLACEMENT CARE MEDICARE REPLACEMENT CARE MEDICARE REPLACEMENT Member Subscriber Plan / Payer (Ef fective 2022-Present) Name:Fariba Keller Relation to Subscriber:Self Name:Fariba Keller Payer ID:[id number] (NAIC) Group ID:[id number] Type:Medicare Address: [place] [phone] [facility] CARE MEDICARE REPLACEMENT [facility] MEDICARE REPLACEMENT Care Teams Telephone Claims Representative Relationship Specialty Start Date End Date Pcp, Unknown PCP - General 11/09/22 Additional Source Comments The information contained in this document represents components of the legal health record. It is not the complete legal health record.[facility]
--- OUTSIDE RECORDS SUMMARY | 2025-01-07 23:52 | XMS_ITS | Clinical Summary ---
Author Organization [facility] Address [address] [place] [address] Phone Care Team Providers Care Translator And Interpreter Name Role Phone Deejay Jacobson MD Primary Care Provider [phone] Allergies Active Allergy Reactions Criticality Noted Date Comments Amoxicillin 10/31/2024 Egg Other 03/03/2024 Medications blood-glucose meter kit Use to check blood sugar twice a day 4 Active lancets lancets Use to check blood sugar twice a day 4 Active aspirin-acetami nophen-caffeine (EXCEDRIN MIGRAINE) 250-250-65 mg per tablet Take 1 Tablet by mouth every 6 hours as needed (headache). 4 Active fexofenadine (PRECIOUS) 180 mg tablet Take 1 Tablet by mouth at bedtime. 4 Active glucose blood test strip Use as instructed 100 each 1 5 08/24/19 26 Active cyanocobalamin (VITAMIN B-12) 1,000 mcg tablet Take 1 tablet (1,000 mcg total) by mouth 1 (one) time each day. 90 tablet 1 5 Active cholecalciferol (VITAMIN D-3) 50 mcg (2,000 unit) tablet Take 1 tablet (2,000 Units total) by mouth 1 (one) time each day. 90 tablet 3 5 Active omeprazole (PriLOSEC) [address] capsule Take 1 capsule (40 mg total) by mouth 1 (one) time each day. Do not crush or chew. 90 each 1 5 Active dulaglutide (TRULICITY) 1.5 mg/0.5 mL pen injector injectionIndica tions:Poorly controlled diabetes mellitus [place] [place] [facility] [place] Inject 0.5 mL (1.5 mg total) under the skin every 7 (seven) days. 6 mL 1 5 Active Active Problems Problem Noted Date Diagnosed Date Type 2 diabetes mellitus wit hout complication, without long-term current use of insulin [place] [place] [facility] [place] 10/16/2024 Migraine without aura and wi thout status migrainosus, not intractable 10/16/2024 Hx of AKA (above knee amputa tion), right [place] [place] [facility] [place] 10/16/2024 Vitamin B12 deficiency 10/16/2024 Vitamin D deficiency 10/16/2024 ADHD (attention deficit hyperactivity disorder) 06/07/2012 Cataract 06/07/2012 Overview (04/09/2024): Laser surgery, posterior lens chamber reimplantation Clubfoot 06/07/2012 Overview (04/09/2024): Congenital, right, foot amputated Femur fracture, right [place] [place] [facility] [place] 06/07/2012 Overview (04/09/2024): , andrew placed Coxa valga 06/01/2011 Osteoarthritis of hip 06/01/2011 Overview (04/09/2024): Dysplastic acetabulum IMO update Encounters Date Type Department Care Team Description 10/31/2024 2:45 PM EDT Office Visit Adult Medicine [address] [phone] Deejay Jacobson MD Poorly controlled diabetes mellitus [place] [place] [facility] [place] (Primary Dx); Gastroesophageal reflux disease without esophagitis; Migraine without aura and without status migrainosus, not intractable; Vitamin B12 deficiency; Vitamin D deficiency; Hx of AKA (above knee amputation), right ([facility] [place], [facility] V28) from Last 3 Months Immunizations Name Administration Dates Next Due DTP 03/30/1999, 2,03/21/1991,1990,1990 [id number] (Pentacel) 2mo to less than 5yo 04/21/1991,1990 HPV, Quadrivalent 08/26/2007,09/17/2006 Hepatitis B Pediatric (Enger ix B; Recombivax HB) to less than 20 yo 11/22/1998,06/25/1998,04/27/1998 MMR, measles mumps and rubel la Live (Priorix; M-M-R II) 12mo and older 12/05/1994,04/21/1991 OPV 03/30/1994, 2,03/21/1991,1990,1990 PPD Test 02/24/2014 Td Tetanus diptheria (Tdvax) 7yo and older 08/05/2001 Td Tetanus diptheria, preser vative free (Tenivac) 7yo and older 07/29/2024 Tdap Tetanus diptheria acell ular pertussis (Boostrix; Adacel) 7yo and older 02/24/2014 Varicella live (Varivax) 12m o and older 10/29/1992 Surgical History Surgery Date Site/Laterality Comments OTHER SURGICAL HISTORY age 10 Right PROCEDURE: ID AMPUTATION LEG THROUGH TIBIA&FIBULA Medical History Medical History Date Comments Fitting and adjustment of ar tificial leg (complete) (partial) DX:Fitting and adjustment of artificial leg (complete) (partial); COMMENT: right leg Clubfoot 06/07/2012 DX:Clubfoot Cataract 06/07/2012 DX:Cataract ADHD (attention deficit hype ractivity disorder) 06/07/2012 DX:ADHD (attention deficit hyperactivity disorder) Femur fracture, right (CMS/H CC V24, [facility] V28) 06/07/2012 DX:Femur fracture, right (HC C) Family History Medical History Relation Name Comments Diabetes Mother father, both gr andmothers Hypertension Mother MGM Stroke Mother Heart attack Paternal Grandmother Breast cancer Neg Hx Colon cancer Neg Hx Ovarian cancer Neg Hx Pancreatic cancer Neg Hx Prostate cancer Neg Hx Uterine cancer Neg Hx Relation Name Status Comments Mother Paternal Grandmother Social History Tobacco Use Types Packs/Day Years Used Date Smoking Tobacco: Never Smokeless Tobacco: Never Tobacco Cessation:Counseling Given: Not Answered Alcohol Use Standard Drinks/Week Comments Yes 0 (1 standard drink = 0.6 oz pur e alcohol) Comments No Sex and Gender Information Value Date Recorded Sex Assigned at Female 10/31/2024 2:01 PM EDT Legal Sex Female 11:47 AM EST Gender Identity Not on file Sexual Orientation Lesbian or Jones 10/31/2024 2: 01 PM EDT Obstetrics History Last Filed Vital Signs Vital Sign Reading Time Taken Comments Blood Pressure 90/60 10/31/2024 2:30 PM EDT Pulse 82 10/31/2024 2:30 PM EDT Temperature 36.3 C (97.3 F) 10/31/2024 2:30 PM EDT Respiratory Rate 16 10/31/2024 2:30 PM EDT Oxygen Saturation - - Inhaled Oxygen Concentration - - Weight 45.8 kg (101 lb) 10/31/2024 2:30 PM EDT Height 149.9 cm (4' 11 ) 10/31/2024 2:30 PM EDT Body Mass Index 20.4 10/31/2024 2:30 PM EDT Plan of Treatment Upcoming Encounters Date Type Department Care Team (Late st Contact Info) Description 03/04/2025 9:30 AM EST Office Visit Adult Medicine [address] [phone] Aundrea Chapman PA [address] [place] [phone] Health Maintenance Due Date Last Done Comments Diabetes: Annual Foot Exam 01/05/2000 Diabetes: Annual Retina Eye Exam 01/05/2000 HPV Vaccines (3 - 3-dose series) 11/18/2007 08/26/2007, 09/17/2006 Pneumococcal Vaccine: Pediatrics (0 to 5 Years) and At-Risk Patients (6 to 49 Years) (1 of 2 - PCV) 2009 Cervical Cancer Screening: Pap Smear 12/31/2017 12/31/2014, 12/31/2014 Medicare Annual Wellness Visit 08/06/2022 Social Influencers of Health Screening 08/06/2022 Depression Screening 04/23/2024 COVID-19 Vaccine ( season) 2024 Influenza Vaccine (#1) 2024 Diabetes: Blood Sugar Control Test (HGBA1C) 05/03/2025 10/31/2024, 07/30/2024, 12/14/2014 Diabetes: Annual Urine Albumin-Creatinine Ratio (uACR) 07/30/2025 07/30/2024 Diabetes: Annual GFR (Glomerular Filtration Rate) 07/30/2025 07/30/2024, 01/14/2015 Cholesterol Screening (Lipid Panel) 07/30/2029 07/30/2024, 01/06/2013 DTaP,Tdap,and Td Vaccines (9 - Td or Tdap) 07/29/2034 07/29/2024, 02/24/2014, 08/05/2001, Additional history exists HIB Vaccines Completed 04/21/1991, 1990 Varicella Vaccines Aged Out 10/29/1992 No longer eligible based on patient's age to complete this topic IPV Vaccines Completed 03/30/1994, 03/23, 04/21/1991, Additional history exists MMR Vaccines Completed 12/05/1994, 04/21/1991 Hepatitis B Vaccines Completed 11/22/1998, 06/25/1998, 04/27/1998 HIV Screening Completed 02/06/2017 Hepatitis C Screening Completed 02/06/2017 Hepatitis A Vaccines Aged Out No long er eligible based on patient's age to complete this topic Meningococcal ACWY Vaccine Aged Out N o longer eligible based on patient's age to complete this topic Meningococcal B Vaccine Aged Out No l onger eligible based on patient's age to complete this topic RSV Immunization Patients Under 20 months Aged Out No longer eligible based on patient's age to complete this topic Procedures Procedure Name Priority Date/Time Associated Diagnosis Comments HEMOGLOBIN A1C Routine 10/31/2024 3:24 PM EDT Poorly controlled diabetes mellitus ([facility] V24, [facility] V28) MICROALBUMIN CREATININE URINE RATIO Routine 07/30/2024 9:08 AM EDT Adult general medical examination Poorly controlled diabetes mellitus ([facility] V24, [facility] V28) Screening cholesterol level COMPREHENSIVE METABOLIC PANEL Routine 07/30/2024 9:08 AM EDT Adult general medical examination Poorly controlled diabetes mellitus (CMS/HCC V24, CMS/HCC V28) Screening cholesterol level LIPID PANEL WITH REFLEX TO DIRECT LDL Routine 07/30/2024 9:08 AM EDT Adult general medical examination Poorly controlled diabetes mellitus (CMS/HCC V24, CMS/HCC V28) Screening cholesterol level HEPATITIS C SCREENING Routine 02/06/2017 HIV SCREENING Routine 02/06/2017 HPV Routine 12/31/2014 from Last 3 Months or Most Recently Relevant to Health Maintenance Results * Hemoglobin A1c (10/31/2024 3:24 PM EDT) Hemoglobin A1C 6.2 <6.5 % LAB CHEMISTRY METHOD 10/31/2024 9:[address] [facility] Mean Bld Glu Estim. 131 mg/dL LAB CHEMISTRY METHOD 10/31/2024 9:[address] [facility] Blood Venous blood specimen / Unknown Venipuncture / Unknown 10/31/2024 3:24 PM EDT 10/31/2024 3:24 PM EDT us Deejay Jacobson MD LAB BLOOD ORDERABLES Final Result [facility] [address] [place] [address], [place] [phone] * Lipid panel with reflex to direct LDL (07/30/2024 9:08 AM EDT) Cholesterol 148 0 - 200 mg/dL LAB CHEMISTRY METHOD 07/30/2024 2:[address] [facility] Triglycerides 75 0 - 150 mg/dL LAB CHEMISTRY METHOD 07/30/2024 2:[address] [facility] HDL 48 >=40 mg/dL LAB CHEMISTRY METHOD 07/30/2024 2:[address] [facility] LDL Calculated 85 0 - 100 mg/dL LAB CHEMISTRY METHOD 07/30/2024 2:[address] [facility] VLDL Cholesterol Liu 15 mg/dL LAB CHEMISTRY METHOD 07/30/2024 2:[address] [facility] Non HDL Chol. (LDL+VLDL) 100 <145 mg/dL LAB CHEMISTRY METHOD 07/30/2024 2:[address] [facility] Chol/HDL Ratio 3.1 0.0 - 4.4 LAB CHEMISTRY METHOD 07/30/2024 2:[address] [facility] Blood Venous blood specimen / Unknown Venipuncture / Unknown 07/30/2024 9:08 AM EDT 07/30/2024 9:08 AM EDT Aundrea ENNIS LAB BLOOD ORDERABLES Fin al Result [facility] [address] [place] [address], * (ABNORMAL) Microalbumin creatinine urine ratio (07/30/2024 9:08 AM EDT) Creatinine, Urine 138.0 mg/dL LAB CHEMISTRY METHOD 07/30/2024 11:[address] [facility] Microalb, Ur 38.9(H) 0.0 - 29.0 mg/L LAB CHEMISTRY METHOD 07/30/2024 11:[address] [facility] Microalb/Crea t Ratio 28 <30 mg/g creat LAB CHEMISTRY METHOD 07/30/2024 11:[address] [facility] Urine Urine specimen obtained by clean catch procedure / Unknown Non-blood Collection / Unknown 07/30/2024 9:08 AM EDT 07/30/2024 9:08 AM EDT Aundrea ENNIS LAB URINE ORDERABLES Fin al Result [facility] [address] [place] [address], [place] [phone] * (ABNORMAL) Comprehensive metabolic panel (07/30/2024 9:08 AM EDT) Sodium 134 133 - 145 mmol/L LAB CHEMISTRY METHOD 07/30/2024 2:28 PM [facility] Potassium 4.1 3.5 - 5.5 mmol/L LAB CHEMISTRY METHOD 07/30/2024 2:28 PM [facility] Chloride 105 96 - 110 mmol/L LAB CHEMISTRY METHOD 07/30/2024 2:28 PM [facility] CO2 22 21 - 32 mmol/L LAB CHEMISTRY METHOD 07/30/2024 2:28 PM [facility] Anion Gap 7 3 - 11 LAB CHEMISTRY METHOD 07/30/2024 2:28 PM [facility] Glucose 174(H) 70 - 100 mg/dL LAB CHEMISTRY METHOD 07/30/2024 2:28 PM [facility] BUN 17 5 - 25 mg/dL LAB CHEMISTRY METHOD 07/30/2024 2:28 PM [facility] Creatinine 0.51 0.50 - 1.10 mg/dL LAB CHEMISTRY METHOD 07/30/2024 2:28 PM [facility] eGFR 126 >=60 mL/min/1. 73m2 LAB CHEMISTRY METHOD 07/30/2024 2:28 PM [facility] Comment:Calculation based on the Chronic Kidney Disease Epidemiology Collaboration (CKD-EPI) equation refit without adjustment for race. BUN/Creatinine Ratio 33.3 LAB CHEMISTRY METHOD 07/30/2024 2:[address] [facility] Calcium 8.9 8.5 - 10.5 mg/dL LAB CHEMISTRY METHOD 07/30/2024 2:[address] [facility] AST (SGOT) 14 10 - 42 unit/L LAB CHEMISTRY METHOD 07/30/2024 2:28 PM [facility] ALT (SGPT) 29 10 - 60 unit/L LAB CHEMISTRY METHOD 07/30/2024 2:28 PM [facility] Alkaline Phosphatase 52 42 - 121 unit/L LAB CHEMISTRY METHOD 07/30/2024 2:28 PM [facility] Total Protein 7.1 6.0 - 8.0 g/dL LAB CHEMISTRY METHOD 07/30/2024 2:28 PM [facility] Albumin 4.1 3.2 - 5.0 g/dL LAB CHEMISTRY METHOD 07/30/2024 2:28 PM [facility] Total Bilirubin 0.6 0.0 - 1.4 mg/dL LAB CHEMISTRY METHOD 07/30/2024 2:28 PM [facility] Blood Venous blood specimen / Unknown Venipuncture / Unknown 07/30/2024 9:08 AM EDT 07/30/2024 9:08 AM EDT Aundrea ENNIS LAB BLOOD ORDERABLES Fin al Result [facility] [address] [place] [address], * HIV Screening (02/06/2017) HIV Screening Abstracted Historical Provider HEALTH MAINTENANCE Final Result * Hepatitis C Screening (02/06/2017) Hepatitis C Screening Abstracted Historical Provider HEALTH MAINTENANCE Final Result * Cervical Cancer Screening: HPV (12/31/2014) Cervical Cancer Screening: HPV No interpretation , Abstracted us Historical Provider HEALTH MAINTENANCE Final Result from Last 3 Months or Most Recently Relevant to Health Maintenance Insurance [employer] MEDICARE [place]ICA[place] - [place] Care Teams Translator And Interpreter Relationship Specialty Start Date End Date Deejay Jacobson MD [address] [place] [address] PCP - General Internal Medicine 07/05/21
[2025-01-08 00:20] VITALS: BP 148/72; PULSE 89; RESP 16; TEMP 36.4; O2SAT 98
== END 2025-01-08 00:21 | disposition home or self-care (01) ==
PROVIDERS: Emergency Provider Student in an Organized Health Care Education/Training Program; PCP Internal Medicine
DX: M79.662 Pain in left lower leg (principal); M79.604 Pain in right leg; M25.40 Effusion, unspecified joint; Z96.698 Presence of other orthopedic joint implants
CPT/HCPCS: 36415; 80053; 85025; 85610; 93971; 99284

== ENCOUNTER → 2025-01-07 22:52 | Outpatient (BNV) | payer MEDICARE, MEDICAID, SELFPAY | PROVIDERS: Emergency Provider Student in an Organized Health Care Education/Training Program; PCP Internal Medicine; Visit Provider Radiology Neuroradiology | DX: R22.42 Localized swelling, mass and lump, left lower limb (principal) | CPT/HCPCS: 93971 ==